=== PATIENT | female | born 1990 | race Two or more races ===

== ENCOUNTER 2020-04-16 14:37 | Outpatient (CLI) | payer MEDICAID ==
[~2020-04-16] VITALS: Ht 157.5 cm; Wt 54.4 kg
[2020-04-16 14:57] VITALS: BP 116/76
[2020-04-16] MEDS ORDERED: COLACE100 MG ORAL (14:57)
[2020-04-16] MEDS ORDERED: VENLAFAXINE H37.5 MG ORAL (14:57)
[2020-04-16] MEDS ORDERED: XANAX0.5 MG ORAL (14:57)
[2020-04-16] MEDS ORDERED: CHANTIX1 MG PO (15:00)
--- NOTE | 2020-04-16 16:00 | Consultation ---
DATE OF CONSULTATION: 04/16/2020 CONSULTING PHYSICIAN: Denver Jason MD CHIEF COMPLAINT: Abdominal pain. HISTORY OF PRESENT ILLNESS: This 30-year-old [place] female with history of bulimia, constipation, had history of severe gastritis back in [place], now is here with recurrent symptoms. She has been taking [id number] Pepcid without any improvement. Also complained of severe constipation to the point that she uses Colace and some enemas. PAST MEDICAL HISTORY: 1. Anxiety. 2. Depression. 3. Kidney stones. 4. GERD. 5. Gastritis. PAST SURGICAL HISTORY: Appendectomy. MEDICATIONS: Please see medication reconciliation list. FAMILY HISTORY: Grandmother had colon cancer. SOCIAL HISTORY: Patient smoked cigarettes, quit in 2015. Uses alcohol. ALLERGIES: No known drug allergies. REVIEW OF SYSTEMS: Positive for abdominal pain, GERD, constipation, and bloating. PHYSICAL EXAMINATION: VITAL SIGNS: Temperature 98.2, blood pressure 116/76, pulse is 77, respirations 20. HEENT: Normocephalic, atraumatic. Sclerae anicteric. NECK: Supple. No evidence of obvious lymphadenopathy. CARDIOVASCULAR: Regular rate and rhythm. Plus S1-S2. LUNGS: Clear to auscultation bilaterally. ABDOMEN: Positive bowel sounds. Soft and nontender. No rebound. No guarding. No peritoneal sign. EXTREMITIES: No cyanosis, no clubbing, no edema. ASSESSMENT AND PLAN: This is a 30-year-old female with recurrent GERD and severe constipation. Plan, start omeprazole 40 mg p.o. daily. We will schedule endoscopy for evaluation of severe gastritis and abdominal pain. Also, we will try the patient on Trulance 3 mg p.o. daily for constipation. Denver Jason M.D. DR: MONTSERRAT JOB#: [id number] CC:
== END 2020-04-16 16:37 | disposition home or self-care (01) ==
LOC: PAN 14:37
DX: R10.9 Unspecified abdominal pain (principal); F32.9 Major depressive disorder, single episode, unspecified; F41.9 Anxiety disorder, unspecified; K21.9 Gastro-esophageal reflux disease without esophagitis; Z90.89 Acquired absence of other organs; K59.00 Constipation, unspecified; Z87.891 Personal history of nicotine dependence; R14.0 Abdominal distension (gaseous); K29.70 Gastritis, unspecified, without bleeding
CPT/HCPCS: G0463